=== PATIENT | female | born 1955 | race Caucasian/White ===

== ENCOUNTER 2016-06-11 10:14 | Emergency (ER) | payer OTHER ==
--- NOTE | 2016-06-11 10:57 | ED ---
General Adult HPI - General Chief complaint: ENT Stated complaint: SORE THROAT Time Seen by Provider: 06/11/16 10:43 Source: patient, RN notes reviewed, old records reviewed Mode of arrival: ambulatory Limitations: no limitations - History of Present Illness Initial comments: Patient 60-year-old female who presents emergency room today with a chief complaint of increased throat pain. She does admit to a history of throat cancer 16 years ago. She states that every May she goes through episodes of having increased pain. She states she has followed up with ENT Dr. Quintana most recently back in the fall. She states she most recently was seen at [facility] approximately a week ago and had a CAT scan. States she was on antibiotics with later feel better. Patient states symptoms once again returned last night. She states worse and she is eating. She states she has pain when she swallows. She denies any difficulty swallowing. She denies any other complaints or associated symptoms at this time. Patient denies any recent fever, chills, shortness of breath, chest pain, back pain, abdominal pain, nausea or vomiting, numbness or tingling, dysuria or hematuria, constipation or diarrhea, headaches or visual changes, or any other complaints. - Related Data Home Medications Medication Instructions Recorded Confirmed Aspirin 81 mg PO DAILY 06/22/15 06/11/16 Nitroglycerin Sl Tabs [Nitrostat] 0.4 mg SUBLINGUAL Q5M PRN 06/22/15 06/11/16 Ranitidine HCl [Zantac] 150 mg PO DAILY 07/16/15 06/11/16 Atorvastatin Calcium [Lipitor] 80 mg PO HS 06/11/16 06/11/16 Ergocalciferol [Vitamin D2] 50,000 unit PO Q7D 06/11/16 06/11/16 Isosorbide Mononitrate ER [Imdur] 30 mg PO HS 06/11/16 06/11/16 Isosorbide Mononitrate ER [Imdur] 60 mg PO QAM 06/11/16 06/11/16 Metoprolol Tartrate [Lopressor] 25 mg PO BID 06/11/16 06/11/16 Allergies Allergy/AdvReac Type Severity Reaction Status Date / Time codeine Allergy Unknown Verified 06/11/16 10:58 Penicillins Allergy Unknown Verified 06/11/16 10:58 sulfamethoxazole Allergy Unknown Verified 06/11/16 10:58 [From ] tramadol Allergy Rash/Hives Verified 06/11/16 10:58 trimethoprim [From Septra] Allergy Unknown Verified 06/11/16 10:58 Review of Systems ROS Statement: Those systems with pertinent positive or pertinent negative responses have been documented in the HPI. ROS Other: All systems not noted in ROS Statement are negative. Past Medical History Past Medical History: Coronary Artery Disease (CAD), Cancer, GERD/Reflux, Thyroid Disorder Additional Past Medical History / Comment(s): breast cancer and throat and tonsilar cancer, hypoglycemia, ibs, anemia, low white blood cells, recovering alcoholic sober 28 History of Any Multi-Drug Resistant Organisms: None Reported Past Surgical History: Section, Coronary Bypass/CABG Additional Past Surgical History / Comment(s): right mastectomy, removed tumor from around tonsils Past Anesthesia/Blood Transfusion Reactions: No Reported Reaction Past Psychological History: Depression Smoking Status: Former smoker Past Alcohol Use History: None Reported Additional Past Alcohol Use History / Comment(s): recovering alcoholic - 28 years Past Drug Use History: None Reported General Exam - General Exam Comments Initial Comments: General: The patient is awake and alert, in no distress, and does not appear acutely ill. Eye: Pupils are equal, round and reactive to light, extra-ocular movements are intact. No nystagmus. There is normal conjunctiva bilaterally. No signs of icterus. Ears, nose, mouth and throat: There are moist mucous membranes and no oral lesions. Neck: The neck is supple, there is no tenderness or JVD. Cardiovascular: There is a regular rate and rhythm. No murmur, rub or gallop is appreciated. Respiratory: Lungs are clear to auscultation, respirations are non-labored, breath sounds are equal. No wheezes, stridor, rales, or rhonchi. Musculoskeletal: Normal ROM, no tenderness. Strength 5/5. Sensation intact. Pulses equal bilaterally 2+. Neurological: A&O x 3. CN II-XII intact, There are no obvious motor or sensory deficits. Coordination appears grossly intact. Speech is normal. Skin: Skin is warm and dry and no rashes or lesions are noted. Psychiatric: Cooperative, appropriate mood & affect, normal judgment. Limitations: no limitations Course Vital Signs 06/11/16 10:18 Temperature 98.1 F Pulse Rate 91 Respiratory 18 Rate Blood Pressure 141/69 O2 Sat by Pulse 96 Oximetry Medical Decision Making - Medical Decision Making Patient's CAT scan from 06/02/2016 performed at [facility] was reviewed and impression that showed no significant abnormality is seen to account for the patient's symptoms of the right side of throat pain. Severe atherosclerotic change bilateral chronic bones causing significant stenosis is felt present in both internal carotid arteries. Vascular surgical follow-up advised to consider direct catheter angiogram. Patient's strep test negative here in the emergency room. Patient is advised follow-up vascular surgeon. Will also be advised follow-up with ENT. Advised return if any symptoms increase or worsen or for any other concerns. - Lab Data Lab Results 06/11/16 Range/Units 10:50 Group A Strep Rapid Negative (Negative) Disposition Clinical Impression: Throat pain Disposition: HOME SELF-CARE Condition: Good Additional Instructions: Please follow-up with ENT and vascular surgeon 1-2 days as discussed. Please return here to the emergency room if any symptoms increase or worsen or for any other concerns. Referrals: Arnold Sánchez DO [Primary Care Provider] - 1-2 days Que Ramírez MD [STAFF PHYSICIAN] - 1-2 days Kirk Matos MD [STAFF PHYSICIAN] - 1-2 days Time of Disposition: 11:56
[2016-06-11 12:35] VITALS: BP 121/58; PULSE 50; RESP 16; TEMP 97.9
== END 2016-06-11 12:34 | disposition home or self-care (01) ==
LOC: EC 10:14
DX: R07.0 Pain in throat (principal); K21.9 Gastro-esophageal reflux disease without esophagitis; I25.10 Atherosclerotic heart disease of native coronary artery without angina pectoris; Z85.819 Personal history of malignant neoplasm of unspecified site of lip, oral cavity, and pharynx; Z79.82 Long term (current) use of aspirin; Z87.891 Personal history of nicotine dependence; Z79.899 Other long term (current) drug therapy; Z88.0 Allergy status to penicillin; Z88.5 Allergy status to narcotic agent; Z88.8 Allergy status to other drugs, medicaments and biological substances
CPT/HCPCS: 87081; 87430; 99283

== ENCOUNTER → 2017-02-11 | Outpatient (CLI) | payer OTHER ==
--- NOTE | 2017-02-11 19:10 | CT ---
EXAMINATION TYPE: CT soft tissue neck w con DATE OF EXAM: 02/11/2017 6:48 PM COMPARISON: 01/31/2016 HISTORY: Right sided neck swelling. History of breast and throat cancer. CT DLP: 463 mGycm Automated exposure control for dose reduction was used. CONTRAST: CT scan of the neck is performed following with IV Contrast, patient injected with 100 mL of Omnipaqu e 300. Axial images are obtained, coronal and sagittal reformatted images are reviewed. FINDINGS: There is normal branching pattern of the great vessels on the aortic arch. Thyroid gland is symmetric . There is normal contrast opacification of the carotid arteries and jugular veins. There is atherosc lerotic calcification in the proximal internal carotid arteries with up to 50% stenosis. There is no evidence of a pharyngeal mass. Epiglottis appears normal. Prevertebral soft tissues are n ot enlarged. I see no definite cervical adenopathy. Submandibular salivary glands appear absent. There is significant fatty replacement of the parotid gl ands. Nasopharynx appears normal. The oral pharynx shows no evidence of a mass. There is normal aerat ion of the visualized paranasal sinuses. IMPRESSION: Atherosclerotic vascular disease with up to 50% stenosis of proximal internal carotid ar teries. No evidence of a pharyngeal mass. I see no sign of recurrent tumor. No adverse change compare d to old exam. Significant atrophy or absence of the parotid and submandibular salivary glands.
== END | disposition home or self-care (01) ==
LOC: RADCTMAIN 18:14
PROVIDERS: ATTEND Otolaryngology
DX: I65.29 Occlusion and stenosis of unspecified carotid artery (principal); R22.1 Localized swelling, mass and lump, neck
CPT/HCPCS: 70491; Q9967

== ENCOUNTER → 2018-07-19 | Outpatient (CLI) | payer OTHER ==
[2018-07-19 13:35] LABS: Blood Urea Nitrogen 10 mg/dL (7-17)
--- NOTE | 2018-07-20 03:45 | CT ---
EXAMINATION TYPE: CT soft tissue neck w con DATE OF EXAM: 07/19/2018 COMPARISON: 02/11/2017 HISTORY: 62-year-old female Difficulty speaking, Hx of esophageal/breast CA. (Prior reports indicate a history of tonsillar cancer). TECHNIQUE: Contiguous axial scanning of the soft tissues of the neck performed with IV Contrast, jesus alberto ent injected with 100 mL of Isovue 300. Coronal/sagittal reconstructions performed. CT DLP: 314 mGycm Automated exposure control for dose reduction was used. FINDINGS: Visualized intracranial structures, orbits and globes, and paranasal sinuses appear clear. The nasopharynx is clear. There is mottled density in the bilateral vallecular spaces suggesting sarai ined vallecular residuals. The epiglottis appears slightly thicker than prior exam. No thumbprinting appearance on the sagittal series. Prevertebral soft tissues are within normal limits. Some mottled d ensity extends into the upper right piriform sinus. The aryepiglottic folds appear relatively symmetr ic. The glottic and subglottic airway, tracheal column, and visualized upper lungs appear clear. The thyroid gland appears satisfactory. The bilateral parotid and submandibular glands are atrophied and not visualized. No cervical lymphadenopathy. Mild cervical spondylosis. Redemonstrated at the scattered calcifications at both bifurcations causin g approximately moderate 50% stenoses bilaterally. IMPRESSION: 1. THE EPIGLOTTIS IS SLIGHTLY THICKER THAN THE PATIENT'S PRIOR EXAMS BUT SHOWS NO JENNIFER THUMBPRINTING ON THE SAGITTAL SERIES. CORRELATE FOR MILD INFLAMMATION/PHARYNGITIS OR EARLY EPIGLOTTITIS. 2. PROMINENT VALLECULAR AND RIGHT PIRIFORM SINUS RESIDUALS WITH RETAINED MOTTLED DEBRIS. THIS IS ALSO A NEW FINDING. IF FURTHER EVALUATION OF THE PATIENT'S SWALLOWING MECHANISM IS DESIRED, SPEECH PATHOL OGY CONSULTATION CAN BE PERFORMED. 3. OTHERWISE, NO DISCRETE MUCOSAL SPACE LESION OR CERVICAL LYMPHADENOPATHY. 4. AT LEAST MODERATE BILATERAL PROXIMAL ICA STENOSES FROM ATHEROSCLEROTIC CALCIFICATIONS, SIMILAR TO PRIOR.
== END | disposition home or self-care (01) ==
LOC: RADCTMAIN 12:58
PROVIDERS: ATTEND Family Medicine
DX: C09.9 Malignant neoplasm of tonsil, unspecified (principal); I65.23 Occlusion and stenosis of bilateral carotid arteries; Z85.3 Personal history of malignant neoplasm of breast
CPT/HCPCS: 82565; 84520; 70491; 36415; Q9967

== ENCOUNTER → 2019-01-04 | Day surgery (SDC) | payer OTHER ==
[2018-12-30 08:46] VITALS: BMI 17.3
[~2019-01-04] MED LIST: LACTATED RINGERS 1,000 ML IV SCH; LIDOCAINE 1% 20 ML VIAL (10MG/ML) FOR IV START INTRADERMA PRN; PROPOFOL 10 MG/ML 20 ML VIAL IV ONE
[2019-01-04 08:49] VITALS: RESP 16; TEMP 97.5
[2019-01-04 09:00] LABS: Glucose,Whole Blood 91 mg/dL (75-99)
--- NOTE | 2019-01-04 09:26 | P.GSHP ---
History of Present Illness H&P Date: 01/04/19 CHIEF COMPLAINT: Colon screen HISTORY OF PRESENT ILLNESS: The patient is a 63-year-old female who presents for colon screen. Lower endoscopy was offered for further evaluation and management. PAST MEDICAL HISTORY: Please see list. PAST SURGICAL HISTORY: Please see list. MEDICATIONS: Please see list. ALLERGIES: Please see list. SOCIAL HISTORY: No illicit drug use FAMILY HISTORY: No reports of Crohn disease or ulcerative colitis. REVIEW OF ORGAN SYSTEMS: CONSTITUTIONAL: No reports of fevers or chills. PHYSICAL EXAM: VITAL SIGNS: Stable GENERAL: Well-developed pleasant in no acute distress. HEENT: No scleral icterus. Extraocular movements grossly intact. Moist buccal mucosa. NECK: Supple without lymphadenopathy. CHEST: Unlabored respirations. Equal bilateral excursions. CARDIOVASCULAR: Regular rate and rhythm. Distal 2+ pulses. ABDOMEN: Soft, nontender, nondistended. MUSCULOSKELETAL: No clubbing, cyanosis, or edema. ASSESSMENT: 1. Colon screen. PLAN: 1. Recommend proceeding with a lower endoscopy Past Medical History Past Medical History: Coronary Artery Disease (CAD), Cancer, Chest Pain / Angina, GERD/Reflux, Hypertension, Myocardial Infarction (NV), Osteoarthritis (OA), Seizure Disorder, Thyroid Disorder Additional Past Medical History / Comment(s): breast cancer, throat and tonsilar cancer, hypoglycemia, ibs, anemia, low white blood cells, recovering alcoholic sober 28, NV x 4, bronchitis and sinus problems, hx blood clot left arm, hx gastritis, rash on left knee, Last Myocardial Infarction Date:: 2015 History of Any Multi-Drug Resistant Organisms: None Reported Past Surgical History: Breast Surgery, Section, Coronary Bypass/CABG Additional Past Surgical History / Comment(s): right mastectomy, removed tumor from around tonsils,, triple bypass 2008 Past Anesthesia/Blood Transfusion Reactions: Unable to Obtain, Motion Sickness Additional Past Anesthesia/Blood Transfusion Reaction / Comment(s): pt not sure of family hx Smoking Status: Former smoker - Past Family History Brother(s) Family Medical History: Cancer Medications and Allergies Home Medications Medication Instructions Recorded Confirmed Type Nitroglycerin Sl Tabs [Nitrostat] 0.4 mg SUBLINGUAL Q5M PRN 06/22/15 12/30/18 History Atorvastatin Calcium [Lipitor] 80 mg PO HS 06/11/16 12/30/18 History Metoprolol Tartrate [Lopressor] 25 mg PO BID 06/11/16 01/04/19 History Albuterol Sulfate [Proair Hfa] 1 - 2 puff INHALATION Q6HR 12/30/18 12/30/18 History Cholecalciferol (Vitamin D3) 2,000 unit PO DAILY 12/30/18 12/30/18 History [Vitamin D3] Isosorbide Mononitrate [Isosorbide 60 mg PO DAILY 12/30/18 12/30/18 History Mononitrate ER] Omeprazole [PriLOSEC] 20 mg PO AC-BRKFST 12/30/18 12/30/18 History Polyethylene Glycol 3350 [Miralax] 17 gm PO DAILY 12/30/18 12/30/18 History Allergies Allergy/AdvReac Type Severity Reaction Status Date / Time codeine Allergy Unknown Verified 01/04/19 08:35 Penicillins Allergy Unknown Verified 01/04/19 08:35 sulfamethoxazole Allergy Unknown Verified 01/04/19 08:35 [From ] tramadol Allergy Rash/Hives Verified 01/04/19 08:35 trimethoprim [From ] Allergy Unknown Verified 01/04/19 08:35 Surgical - Exam Vital Signs Temp Pulse Resp BP Pulse Ox 97.5 F L 69 16 100/58 98 01/04/19 08:40 01/04/19 08:40 01/04/19 08:40 01/04/19 08:40 01/04/19 08:40
--- NOTE | 2019-01-04 09:34 | P.PCN ---
Date of Procedure: 01/04/19 Description of Procedure: PREOPERATIVE DIAGNOSIS: Colonoscopy screening. POSTOPERATIVE DIAGNOSIS: Colonoscopy screening to hepatic flexure External hemorrhoids. Poor prep OPERATION: Colonoscopy to the hepatic flexure SURGEON: Pia Tolbert MD. ANESTHESIA: MAC. INDICATIONS: The patient is a 63-year-old female who presents for colonoscopy screening. Benefits and risks were described and informed consent was obtained. DESCRIPTION OF PROCEDURE: The patient had undergone Surep. She had been brought into the operating room and laid in the left lateral decubitus position. After adequate intravenous sedation, the rectum was examined with 2% lidocaine jelly. External hemorrhoids were encountered. The rectal tone was loose. No lesions were palpated in the rectal vault. An Olympus colonoscope was advanced along the rectum to a very tortuous sigmoid colon. The prep was poor with moderate brown liquid stools. Despite multiple maneuvers, the sigmoid colon has severe tortuosity preventing further advancement of scope beyond the hepatic flexure. No evidence of polyps were identified from the hepatic flexure distally. She had a very poor prep. As the patient posed high risk for perforation with persistence of the procedure, the procedure was discontinued. The colon was desufflated. The patient had tolerated the procedure well. Withdrawal time was over 6 minutes. FINDINGS: [place] preparation quality scale 4 (1-5) Tortuous sigmoid colon with stricture preventing further advancement of the scope. External prolapsed hemorrhoids. Scope advanced to hepatic flexure No arteriovenous malformations. No adenomatous polyps. No focal colitis. RECOMMENDATIONS: Completion of colonoscopy evaluation with barium enema. Plan - Discharge Summary New Discharge Prescriptions: No Action Nitroglycerin Sl Tabs [Nitrostat] 0.4 mg SUBLINGUAL Q5M PRN PRN Reason: Pain Metoprolol Tartrate [Lopressor] 25 mg PO BID Atorvastatin Calcium [Lipitor] 80 mg PO HS Polyethylene Glycol 3350 [Miralax] 17 gm PO DAILY Albuterol Sulfate [Proair Hfa] 1 - 2 puff INHALATION Q6HR Omeprazole [PriLOSEC] 20 mg PO AC-BRKFST Isosorbide Mononitrate [Isosorbide Mononitrate ER] 60 mg PO DAILY Cholecalciferol (Vitamin D3) [Vitamin D3] 2,000 unit PO DAILY Discharge Medication List Nitroglycerin Sl Tabs [Nitrostat] 0.4 mg SUBLINGUAL Q5M PRN 06/22/15 [History] Atorvastatin Calcium [Lipitor] 80 mg PO HS 06/11/16 [History] Metoprolol Tartrate [Lopressor] 25 mg PO BID 06/11/16 [History] Albuterol Sulfate [Proair Hfa] 1 - 2 puff INHALATION Q6HR 12/30/18 [History] Cholecalciferol (Vitamin D3) [Vitamin D3] 2,000 unit PO DAILY 12/30/18 [History] Isosorbide Mononitrate [Isosorbide Mononitrate ER] 60 mg PO DAILY 12/30/18 [History] Omeprazole [PriLOSEC] 20 mg PO AC-BRKFST 12/30/18 [History] Polyethylene Glycol 3350 [Miralax] 17 gm PO DAILY 12/30/18 [History] Follow up Appointment(s)/Referral(s): Pia Tolbert MD [STAFF PHYSICIAN] - 01/31/19 Patient Instructions/Handouts: Constipation (DC) Activity/Diet/Wound Care/Special Instructions: Follow-up at the completion of barium enema Discharge Disposition: HOME SELF-CARE
[2019-01-04 10:09] VITALS: BP 87/49; PULSE 57
--- NOTE | 2019-01-04 18:34 | FL ---
EXAMINATION TYPE: Single contrast barium enema DATE OF EXAM: 01/04/2019 CLINICAL HISTORY: Incomplete colonoscopy TECHNIQUE: A single contrast barium enema study is performed. COMPARISON: None. FINDINGS: Fluoroscopy time: 1 minute 56 seconds Images: 27 Single contrast barium enema is performed. Excessive colonic bowel gas remains present on skilled helper view. Barium is refluxed through the colon to appears to be the cecum. Confirmation of the appendix or term inal ileum cannot be performed. There is loss of the hospital markings. Correlate for laxative abuse. There is redundancy of the sigm oid colon. No persistent circumferential narrowing or filling defects are identified during this exam . There is moderately prominent residual on post evacuation films. IMPRESSION: 1. Diminished haustral markings which can be associated with laxative abuse. 2. No persistent suspicious abnormality.
== END | disposition home or self-care (01) ==
LOC: ORWHC2ENDO 07:44 → EEVIPCON 08:55
PROVIDERS: ATTEND Surgery Plastic and Reconstructive Surgery
DX: Z12.11 Encounter for screening for malignant neoplasm of colon (principal); Q43.8 Other specified congenital malformations of intestine; K64.4 Residual hemorrhoidal skin tags; I25.119 Atherosclerotic heart disease of native coronary artery with unspecified angina pectoris; I10 Essential (primary) hypertension; Z87.891 Personal history of nicotine dependence; K21.9 Gastro-esophageal reflux disease without esophagitis; I25.2 Old myocardial infarction; K58.9 Irritable bowel syndrome, unspecified; D64.9 Anemia, unspecified; F10.21 Alcohol dependence, in remission; E16.2 Hypoglycemia, unspecified; M19.90 Unspecified osteoarthritis, unspecified site; E07.9 Disorder of thyroid, unspecified; R56.9 Unspecified convulsions; Z85.3 Personal history of malignant neoplasm of breast; Z85.819 Personal history of malignant neoplasm of unspecified site of lip, oral cavity, and pharynx; Z97.2 Presence of dental prosthetic device (complete) (partial); Z95.1 Presence of aortocoronary bypass graft; Z90.11 Acquired absence of right breast and nipple; Z79.899 Other long term (current) drug therapy; Z88.5 Allergy status to narcotic agent; Z88.0 Allergy status to penicillin; Z88.2 Allergy status to sulfonamides
CPT/HCPCS: 74270; G0105; J2704; 45378